=== PATIENT | female | born 1990 | race Two or more races ===

== ENCOUNTER 2020-11-04 17:30 | Inpatient (IN) | payer MEDICARE, MEDICAID ==
[~2020-11-04] VITALS: Ht 152.4 cm; Wt 91.0 kg
[2020-11-04] MEDS ORDERED: SODIUM CHLORIDE 0.9% 250 ML IV ONE (18:15)
[2020-11-04 19:47] LABS: Basophils # (auto) 0.1 10 ^3/uL (0-0.2); Eosinophils # (auto) 0.1 10 ^3/uL (0-0.8); Lymphocytes # (auto) 0.5 10 ^3/uL (0.4-5.4); Red Blood Cells 2.07 10^6/uL (4.0-5.20)
[2020-11-04 19:50] LABS: Basophils % (auto) 1.2 % (0.0-2.0); Eosinophils % (auto) 1.2 % (0.0-7.0); Hematocrit 18.4 % (36.0-46.0); Lymphocytes % (auto) 8.7 % (10.0-50.0); Mean Corpuscular Hemoglobin 29.5 pg (28.0-32.0); Mean Corpuscular Hgb Conc. 33.1 g/dL (32.0-36.0); Monocytes # (auto) 0.4 10 ^3/uL (0-1.3); Monocytes % (auto) 7.1 % (0.0-12.0); Neutrophils % (auto) 81.8 % (37.0-80.0); Nucleated Red Blood Cells % 0.1 %; Platelet Count (auto) 229 10^3/uL (140-450); White Blood Cell 6.1 10^3/uL (4.4-10.8)
[2020-11-04 19:58] LABS: Albumin 2.3 g/dL (3.4-5.0); Calcium 7.6 mg/dL (8.5-10.1); Magnesium 2.3 mg/dL (1.6-2.6); Potassium 4.5 mmol/L (3.5-5.1)
[2020-11-04 20:01] LABS: BUN/Creatinine Ratio 7.8
[2020-11-04 20:03] LABS: Hemoglobin 6.1 g/dL (12.2-16.2)
[2020-11-04 20:05] LABS: Bilirubin, Total 0.6 mg/dL (0.2-1.0); Total Protein 7.5 g/dL (6.4-8.2)
[2020-11-04] MEDS ORDERED: LABETALOL HCL 5 MG/ML 4ML SYRINGE IV ONE (20:15)
[2020-11-04] MEDS ORDERED: DEXTROSE (50%) 50ML SYRG IV PRN (21:30)
[2020-11-04] MEDS ORDERED: ONDANSETRON HCL 4 MG/2 ML VIAL IV PRN (21:30)
[2020-11-04] MEDS ORDERED: ACETAMINOPHEN 325 MG TAB PO PRN (21:30)
[2020-11-04] MEDS ORDERED: LORazepam 2MG/ML-1ML VIAL IV ONE (21:30)
[2020-11-04] MEDS ORDERED: TEMAZEPAM 15 MG CAP PO PRN (21:30)
[2020-11-04] MEDS ORDERED: NITROGLYCERIN 0.4 MG SL TAB SL PRN (23:00)
[2020-11-04] MEDS: ATORVASTATIN 20 MG TAB PO SCH (23:20)
[2020-11-04] MEDS: GABAPENTIN 100 MG CAP PO SCH (23:20)
[2020-11-04 23:56] VITALS: BP 104/55
[2020-11-05] VITALS (94 sets, daily range): BP systolic 54–200; BP diastolic 35–117
[2020-11-05] MEDS ORDERED: SODIUM CHLORIDE 0.9% 500 ML IV ONE (00:15)
[2020-11-05] MEDS ORDERED: ETOMIDATE (2MG/ML) 20ML VIAL IV ONE ×2 (00:36→05:15)
[2020-11-05] MEDS ORDERED: ROCURONIUM 10MG/ML 10ML VIAL IV ONE ×3 (00:40→00:41)
[2020-11-05] MEDS ORDERED: SUCCINYLCHOLINE CHLORIDE 20 MG/ML 10ML VIAL IV ONE (00:42)
[2020-11-05] MEDS ORDERED: PROPOFOL 100 ML IV ONE (00:46)
[2020-11-05] MEDS: PROPOFOL 100 ML IV SCH (00:46)
[2020-11-05] MEDS ORDERED: MIDAZOLAM DRIP 50 mg/50mL 50 ML IV ONE (01:52)
[2020-11-05] MEDS ORDERED: fentaNYL Drip 2500mCg/250mlNS 250 ML IV ONE (01:53)
[2020-11-05] MEDS: MIDAZOLAM DRIP 50 mg/50mL 50 ML IV SCH ×4 (01:56→21:38)
[2020-11-05] MEDS: fentaNYL Drip 2500mCg/250mlNS 250 ML IV SCH ×2 (02:00→13:51)
[2020-11-05] MEDS ORDERED: NOREPINEPHRINE 8 MG/250ML KIT 250 ML IV ONE (02:00)
[2020-11-05] MEDS: NOREPINEPHRINE 8 MG/250ML KIT 250 ML IV SCH (02:14)
[2020-11-05] MEDS ORDERED: dilTIAZem 25 MG/5 ML VIAL IV ONE ×2 (02:22)
[2020-11-05] MEDS: InsuLIN REG 1unit/0.01ml Soln (100units/ml) SC SCH ×4 (03:00→18:00)
[2020-11-05] MEDS: ACCU-CHEK COMFORT CURVE STRIP VI SCH ×4 (03:00→17:34)
[2020-11-05] MEDS ORDERED: methylPREDNISolone SOD SUCC 125 MG/2 ML VL IV ONE (03:15)
[2020-11-05] MEDS ORDERED: FAMOTIDINE (10MG/ML) 2ML VL IV ONE (03:15)
[2020-11-05] MEDS ORDERED: ACETAMINOPHEN 325 MG TAB PO ONE (03:15)
[2020-11-05] MEDS ORDERED: AMLO-489 PO (04:48)
[2020-11-05] MEDS ORDERED: ZOLP5TAB5 PO (04:49)
[2020-11-05] MEDS ORDERED: GABA300C10 PO (04:49)
[2020-11-05] MEDS ORDERED: ATOR40TA52 PO (04:49)
[2020-11-05] MEDS ORDERED: CARV3.1240 PO (04:49)
[2020-11-05] MEDS ORDERED: HYDR-4798 PO (04:51)
[2020-11-05] MEDS ORDERED: SUCR5CHW PO (04:51)
[2020-11-05] MEDS: CLINDAMYCIN 600MG IV 50 ML IV SCH ×3 (05:24→21:30)
[2020-11-05] MEDS ORDERED: DIGOXIN (250MCG/ML) 2 ML AMPULE IV ONE (05:30)
[2020-11-05] MEDS ORDERED: AMIODARONE HCL 150 MG in D5W 5% 100 ML IV ONE (06:45)
[2020-11-05] MEDS ORDERED: AMIODARONE 450mg/250ml AE 250 ML IV SCH (07:00)
[2020-11-05] MEDS ORDERED: ENOXAPARIN SOD 100 MG/1 ML SYRINGE SC ONE (07:45)
[2020-11-05 09:10] LABS: Basophils # (auto) 0 10 ^3/uL (0-0.2); Eosinophils # (auto) 0 10 ^3/uL (0-0.8); Lymphocytes # (auto) 0.3 10 ^3/uL (0.4-5.4); Neutrophils # (auto) 6.1 10 ^3/uL (1.6-8.6)
[2020-11-05 09:12] LABS: Basophils % (auto) 0.7 % (0.0-2.0); Lymphocytes % (auto) 4.8 % (10.0-50.0); Mean Corpuscular Hemoglobin 30.4 pg (28.0-32.0); Mean Corpuscular Hgb Conc. 33.3 g/dL (32.0-36.0); Mean Corpuscular Volume 91.4 fL (80.0-100.0); Monocytes # (auto) 0.2 10 ^3/uL (0-1.3); Monocytes % (auto) 2.5 % (0.0-12.0); Nucleated Red Blood Cells % 0.2 %; Platelet Count (auto) 275 10^3/uL (140-450); Red Blood Cells 1.86 10^6/uL (4.0-5.20); Red Cell Distribution Width 18.4 % (11.8-14.3); White Blood Cell 6.7 10^3/uL (4.4-10.8)
[2020-11-05 09:29] LABS: Calcium 7.8 mg/dL (8.5-10.1)
[2020-11-05 09:33] LABS: BUN/Creatinine Ratio 7.9
[2020-11-05 09:34] LABS: INR 1.36 (0.9-1.15); Partial Thromboplastin Time 46.7 sec (23.0-31.2)
[2020-11-05 09:35] LABS: Potassium 6.2 mmol/L (3.5-5.1)
[2020-11-05 09:49] LABS: Hemoglobin 5.7 g/dL (12.2-16.2)
[2020-11-05] MEDS ORDERED: SODIUM ZIRCONIUM CYCL 10 GM PAK PO ONE (10:00)
[2020-11-05] MEDS ORDERED: amLODIPine BESYLATE 5 MG TAB PO SCH (10:00)
[2020-11-05] MEDS ORDERED: ASPirin 81 mg TAB PO SCH (10:00)
[2020-11-05] MEDS ORDERED: ALBUTEROL SULF 2.5 MG/0.5ML(0.5%) NEB SOLN NEB ONE (10:00)
[2020-11-05] MEDS ORDERED: LOSARTAN POTASSIUM 50 MG TAB PO SCH (10:00)
[2020-11-05] MEDS ORDERED: InsuLIN REG 1unit/0.01ml Soln (100units/ml) IV ONE (10:00)
[2020-11-05] MEDS ORDERED: SERTRALINE HCL 50 MG TAB PO SCH (10:00)
[2020-11-05] MEDS ORDERED: PANTOPRAZOLE 40 MG TAB PO SCH (10:00)
[2020-11-05] MEDS ORDERED: DEXTROSE (50%) 50ML SYRG IV ONE (10:00)
[2020-11-05] MEDS ORDERED: SODIUM BICARBONATE 8.4% INJ 50ML SYRINGE IV ONE ×2 (10:00→18:55)
[2020-11-05] MEDS ORDERED: ALBUTEROL SULF 2.5 MG/0.5ML(0.5%) NEB SOLN ONE (10:07)
[2020-11-05] MEDS: CALCIUM ACETATE 667 MG CAP PO SCH ×3 (10:20→18:39)
[2020-11-05] MEDS: GABAPENTIN 100 MG CAP PO SCH (10:20)
[2020-11-05] MEDS: PANTOPRAZOLE 40 MG/10 ML VIAL INJ IV SCH (10:20)
[2020-11-05] MEDS ORDERED: cefTRIAXone 1GM/50ML D5W 50 ML IV ONE (13:45)
[2020-11-05] MEDS ORDERED: AZITHROMYCIN 500MG/ 250ML 250 ML IV ONE (13:45)
[2020-11-05 14:00] LABS: % Iron Saturation 24.2 % (15-50)
[2020-11-05] MEDS: AMIODARONE 450mg/250ml AE 250 ML IV SCH (14:30)
[2020-11-05] MEDS ORDERED: SODIUM CHL 0.9% 1000 ML BAG XX ONE (16:15)
[2020-11-05 18:29] LABS: Hematocrit 27.1 % (36.0-46.0)
[2020-11-05] MEDS: SODIUM ZIRCONIUM CYCL 10 GM PAK PO SCH ×2 (18:39→22:11)
[2020-11-05] MEDS ORDERED: AMIODARONE HCL (50 MG/ ML) 3 ML VIAL IV ONE (18:55)
[2020-11-05] MEDS ORDERED: EPINEPHrine HCL 1 MG/10 ML SYRG IV ONE (18:55)
[2020-11-05] MEDS ORDERED: EPOETIN ALFA-EPBX 10,000 UNIT/1ML VIAL SC ONE (21:00)
[2020-11-05] MEDS: ATORVASTATIN 20 MG TAB PO SCH (22:10)
[2020-11-06] VITALS (101 sets, daily range): BP systolic 90–197; BP diastolic 37–89
[2020-11-06] MEDS: InsuLIN REG 1unit/0.01ml Soln (100units/ml) SC SCH ×4 (00:11→18:30)
[2020-11-06] MEDS: fentaNYL Drip 2500mCg/250mlNS 250 ML IV SCH (00:12)
[2020-11-06] MEDS: ACCU-CHEK COMFORT CURVE STRIP VI SCH ×4 (00:12→18:00)
[2020-11-06] MEDS: PROPOFOL 100 ML IV SCH (00:35)
[2020-11-06] MEDS: NOREPINEPHRINE 8 MG/250ML KIT 250 ML IV SCH (02:15)
[2020-11-06] MEDS: AMIODARONE 450mg/250ml AE 250 ML IV SCH (04:35)
[2020-11-06 04:38] LABS: Basophils # (auto) 0 10 ^3/uL (0-0.2); Eosinophils # (auto) 0 10 ^3/uL (0-0.8); Lymphocytes # (auto) 0.5 10 ^3/uL (0.4-5.4); Monocytes # (auto) 0.4 10 ^3/uL (0-1.3); Monocytes % (auto) 7.6 % (0.0-12.0)
[2020-11-06 04:41] LABS: Basophils % (auto) 0.2 % (0.0-2.0); Hematocrit 20.7 % (36.0-46.0); Lymphocytes % (auto) 9.6 % (10.0-50.0); Mean Corpuscular Hemoglobin 29.8 pg (28.0-32.0); Mean Corpuscular Hgb Conc. 33.7 g/dL (32.0-36.0); Mean Corpuscular Volume 88.4 fL (80.0-100.0); Neutrophils # (auto) 4.7 10 ^3/uL (1.6-8.6); Neutrophils % (auto) 82.6 % (37.0-80.0); Nucleated Red Blood Cells % 1.1 %; Platelet Count (auto) 218 10^3/uL (140-450); Red Blood Cells 2.34 10^6/uL (4.0-5.20); Red Cell Distribution Width 18.1 % (11.8-14.3); White Blood Cell 5.7 10^3/uL (4.4-10.8)
[2020-11-06 04:57] LABS: Potassium 4.5 mmol/L (3.5-5.1)
[2020-11-06 05:03] LABS: Albumin 2.3 g/dL (3.4-5.0); BUN/Creatinine Ratio 8.3; Bilirubin, Total 0.9 mg/dL (0.2-1.0); Calcium 8.2 mg/dL (8.5-10.1); Magnesium 2.5 mg/dL (1.6-2.6); Total Protein 7.1 g/dL (6.4-8.2)
[2020-11-06] MEDS: SODIUM ZIRCONIUM CYCL 10 GM PAK PO SCH ×2 (05:46→14:00)
[2020-11-06] MEDS: CLINDAMYCIN 600MG IV 50 ML IV SCH ×3 (05:47→21:06)
[2020-11-06] MEDS: AZITHROMYCIN 500MG/ 250ML 250 ML IV SCH (09:20)
[2020-11-06] MEDS: PANTOPRAZOLE 40 MG/10 ML VIAL INJ IV SCH (09:20)
[2020-11-06] MEDS: cefTRIAXone 1GM/50ML D5W 50 ML IV SCH (09:20)
[2020-11-06] MEDS: CALCIUM ACETATE 667 MG CAP PO SCH ×3 (09:20→18:00)
[2020-11-06] MEDS: AMIODARONE HCL 200 MG TAB PO SCH ×2 (09:21→21:06)
[2020-11-06 09:56] LABS: Hematocrit 20.2 % (36.0-46.0)
[2020-11-06] MEDS ORDERED: ASPirin 81 mg TAB PO SCH (10:00)
[2020-11-06 10:19] LABS: Hemoglobin 6.8 g/dL (12.2-16.2)
[2020-11-06] MEDS ORDERED: hydrALAZINE HCL 20 MG/ML VL ONE (12:27)
[2020-11-06] MEDS ORDERED: hydrALAZINE HCL 20 MG/ML VL IV PRN (12:30)
[2020-11-06] MEDS ORDERED: LORazepam 0.5 MG TAB PO PRN (14:45)
[2020-11-06] MEDS ORDERED: cloNIDine 0.2 mg/24hr 7DAY PATCH TD SCH (18:45)
[2020-11-06] MEDS: CARVEDILOL 3.125 MG TAB PO SCH (21:07)
[2020-11-07] VITALS (49 sets, daily range): BP systolic 118–207; BP diastolic 46–94
[2020-11-07] MEDS: ACCU-CHEK COMFORT CURVE STRIP VI SCH ×4 (00:30→18:00)
[2020-11-07] MEDS: InsuLIN REG 1unit/0.01ml Soln (100units/ml) SC SCH ×4 (00:30→18:00)
[2020-11-07 04:26] LABS: Hematocrit 26.2 % (36.0-46.0); Hemoglobin 8.8 g/dL (12.2-16.2)
[2020-11-07 04:42] LABS: Albumin 2.5 g/dL (3.4-5.0); Calcium 8.2 mg/dL (8.5-10.1); Potassium 4.2 mmol/L (3.5-5.1)
[2020-11-07 04:45] LABS: BUN/Creatinine Ratio 9.4; Bilirubin, Total 0.6 mg/dL (0.2-1.0); Total Protein 6.7 g/dL (6.4-8.2)
[2020-11-07 04:46] LABS: INR 1.32 (0.9-1.15)
[2020-11-07] MEDS: CLINDAMYCIN 600MG IV 50 ML IV SCH (06:16)
[2020-11-07] MEDS ORDERED: SODIUM CHL 0.9% 1000 ML BAG XX ONE (07:00)
[2020-11-07] MEDS: CALCIUM ACETATE 667 MG CAP PO SCH ×3 (08:00→18:00)
[2020-11-07] MEDS: cefTRIAXone 1GM/50ML D5W 50 ML IV SCH (09:00)
[2020-11-07 09:25] LABS: Hepatitis B Surface Antibody Positive
[2020-11-07 09:52] LABS: Hepatitis A Total Antibody Positive
[2020-11-07] MEDS: PANTOPRAZOLE 40 MG/10 ML VIAL INJ IV SCH (10:00)
[2020-11-07] MEDS: CARVEDILOL 3.125 MG TAB PO SCH ×2 (10:00→21:32)
[2020-11-07] MEDS: AZITHROMYCIN 500MG/ 250ML 250 ML IV SCH (10:00)
[2020-11-07] MEDS: amLODIPine BESYLATE 5 MG TAB PO SCH (10:00)
[2020-11-07] MEDS: AMIODARONE HCL 200 MG TAB PO SCH ×2 (10:00→21:32)
[2020-11-07] MEDS ORDERED: HYDROmorphone HCL 2 MG/ML VL ONE (10:30)
[2020-11-07] MEDS: HYDROmorphone HCL 2 MG/ML VL IV PRN ×3 (10:39→21:32)
[2020-11-07 11:00] LABS: Hepatitis B Core Total AB Negative; Hepatitis B Surface Antigen Negative (Negative); Hepatitis C Antibody Negative (Negative)
[2020-11-07] MEDS ORDERED: EPOETIN ALFA-EPBX 10,000 UNIT/1ML VIAL SC ONE (21:00)
[2020-11-08] MEDS: ACCU-CHEK COMFORT CURVE STRIP VI SCH ×4 (00:18→17:35)
[2020-11-08] MEDS: InsuLIN REG 1unit/0.01ml Soln (100units/ml) SC SCH ×4 (00:20→17:35)
[2020-11-08] MEDS: HYDROmorphone HCL 2 MG/ML VL IV PRN ×4 (04:09→23:15)
[2020-11-08 05:08] VITALS: BP 136/71
[2020-11-08] MEDS: CALCIUM ACETATE 667 MG CAP PO SCH ×3 (08:00→17:33)
[2020-11-08 09:00] VITALS: BP 116/67
[2020-11-08] MEDS ORDERED: IOHEXOL 350 MG/ML 100ML IJ ONE (09:56)
[2020-11-08] MEDS: CARVEDILOL 3.125 MG TAB PO SCH ×2 (10:50→22:07)
[2020-11-08] MEDS: amLODIPine BESYLATE 5 MG TAB PO SCH (10:51)
[2020-11-08] MEDS: AMIODARONE HCL 200 MG TAB PO SCH ×2 (10:51→22:06)
[2020-11-08] MEDS: PANTOPRAZOLE 40 MG/10 ML VIAL INJ IV SCH (10:51)
[2020-11-08] MEDS: AZITHROMYCIN 500MG/ 250ML 250 ML IV SCH (10:52)
[2020-11-08] MEDS: cefTRIAXone 1GM/50ML D5W 50 ML IV SCH (10:52)
[2020-11-08 11:08] LABS: Basophils # (auto) 0.1 10 ^3/uL (0-0.2); Eosinophils # (auto) 0.1 10 ^3/uL (0-0.8); Lymphocytes # (auto) 0.8 10 ^3/uL (0.4-5.4); Nucleated Red Blood Cells % 0.2 %; White Blood Cell 5.5 10^3/uL (4.4-10.8)
[2020-11-08 11:11] LABS: Basophils % (auto) 1.1 % (0.0-2.0); Eosinophils % (auto) 2.2 % (0.0-7.0); Hematocrit 24.3 % (36.0-46.0); Hemoglobin 8.1 g/dL (12.2-16.2); Lymphocytes % (auto) 14.2 % (10.0-50.0); Mean Corpuscular Hemoglobin 30.3 pg (28.0-32.0); Mean Corpuscular Hgb Conc. 33.5 g/dL (32.0-36.0); Mean Corpuscular Volume 90.6 fL (80.0-100.0); Monocytes # (auto) 0.6 10 ^3/uL (0-1.3); Monocytes % (auto) 10.1 % (0.0-12.0); Neutrophils % (auto) 72.4 % (37.0-80.0); Platelet Count (auto) 185 10^3/uL (140-450); Red Blood Cells 2.69 10^6/uL (4.0-5.20); Red Cell Distribution Width 17.7 % (11.8-14.3)
[2020-11-08] MEDS: diphenhdrAMINE HCL 50 MG/1 ML VL IV PRN (12:56)
[2020-11-08 13:00] VITALS: BP 132/70
[2020-11-08 13:31] LABS: Albumin 2.3 g/dL (3.4-5.0); Calcium 8.2 mg/dL (8.5-10.1); Magnesium 2.7 mg/dL (1.6-2.6); Potassium 3.3 mmol/L (3.5-5.1)
[2020-11-08 13:34] LABS: BUN/Creatinine Ratio 7.7; Bilirubin, Total 0.5 mg/dL (0.2-1.0); Total Protein 6.2 g/dL (6.4-8.2)
[2020-11-08 16:57] VITALS: BP 119/75
[2020-11-08] MEDS ORDERED: POLYETHYLENE GLYCOL 17 GM PWDR PO ONE (17:45)
[2020-11-08] MEDS ORDERED: POTASSIUM CHL 20 Meq TABLET PO ONE (17:45)
[2020-11-08] MEDS ORDERED: REMDESIVIR PER PHARMACY 0 ML IV SCH (17:45)
[2020-11-08 22:00] VITALS: BP 119/65
[2020-11-09] MEDS: InsuLIN REG 1unit/0.01ml Soln (100units/ml) SC SCH ×4 (00:36→17:37)
[2020-11-09] MEDS: diphenhdrAMINE HCL 50 MG/1 ML VL IV PRN (00:37)
[2020-11-09 05:24] VITALS: BP 95/53
[2020-11-09] MEDS: HYDROmorphone HCL 2 MG/ML VL IV PRN ×4 (05:40→21:41)
[2020-11-09] MEDS: ACCU-CHEK COMFORT CURVE STRIP VI SCH ×4 (05:40→17:25)
[2020-11-09] MEDS ORDERED: SODIUM CHL 0.9% 1000 ML BAG XX ONE (07:00)
[2020-11-09 07:22] LABS: Basophils # (auto) 0 10 ^3/uL (0-0.2); Basophils % (auto) 0.4 % (0.0-2.0); Eosinophils # (auto) 0.2 10 ^3/uL (0-0.8); Eosinophils % (auto) 3.8 % (0.0-7.0); Lymphocytes # (auto) 0.8 10 ^3/uL (0.4-5.4); Lymphocytes % (auto) 12.4 % (10.0-50.0); Mean Corpuscular Hemoglobin 30.5 pg (28.0-32.0); Mean Corpuscular Hgb Conc. 33.4 g/dL (32.0-36.0); Mean Corpuscular Volume 91.3 fL (80.0-100.0); Monocytes # (auto) 0.6 10 ^3/uL (0-1.3); Monocytes % (auto) 9.8 % (0.0-12.0); Neutrophils # (auto) 4.6 10 ^3/uL (1.6-8.6); Neutrophils % (auto) 73.6 % (37.0-80.0); Nucleated Red Blood Cells % 0.4 %; Platelet Count (auto) 178 10^3/uL (140-450); Red Blood Cells 2.63 10^6/uL (4.0-5.20); Red Cell Distribution Width 17.4 % (11.8-14.3); White Blood Cell 6.3 10^3/uL (4.4-10.8)
[2020-11-09 07:32] LABS: Albumin 2.4 g/dL (3.4-5.0); Calcium 7.5 mg/dL (8.5-10.1); Potassium 3.6 mmol/L (3.5-5.1)
[2020-11-09 07:41] LABS: BUN/Creatinine Ratio 7.2; Bilirubin, Total 0.4 mg/dL (0.2-1.0); Total Protein 6.5 g/dL (6.4-8.2)
[2020-11-09] MEDS: CALCIUM ACETATE 667 MG CAP PO SCH ×3 (08:22→17:26)
[2020-11-09] MEDS: cefTRIAXone 1GM/50ML D5W 50 ML IV SCH (08:23)
[2020-11-09 08:48] VITALS: BP 116/58
[2020-11-09] MEDS: amLODIPine BESYLATE 5 MG TAB PO SCH (10:00)
[2020-11-09] MEDS: CARVEDILOL 3.125 MG TAB PO SCH ×2 (10:00→21:41)
[2020-11-09] MEDS: PANTOPRAZOLE 40 MG/10 ML VIAL INJ IV SCH (10:20)
[2020-11-09] MEDS: AMIODARONE HCL 200 MG TAB PO SCH ×2 (10:20→21:40)
[2020-11-09] MEDS: AZITHROMYCIN 500MG/ 250ML 250 ML IV SCH (10:21)
[2020-11-09 13:00] VITALS: BP 113/75
[2020-11-09] MEDS ORDERED: TEMAZEPAM 15 MG CAP PO PRN (13:15)
[2020-11-09 17:00] VITALS: BP 111/68
[2020-11-09] MEDS ORDERED: ERGOCALCIFEROL 50,000 UNIT(1.25MG) CAP PO SCH (18:30)
[2020-11-09] MEDS ORDERED: EPOETIN ALFA-EPBX 10,000 UNIT/1ML VIAL SC ONE (21:00)
[2020-11-09 22:12] VITALS: BP 135/53
[2020-11-10] MEDS: diphenhdrAMINE HCL 50 MG/1 ML VL IV PRN (00:48)
[2020-11-10] MEDS: HYDROmorphone HCL 2 MG/ML VL IV PRN ×2 (04:23→11:21)
[2020-11-10 05:05] VITALS: BP 114/55
[2020-11-10] MEDS: InsuLIN REG 1unit/0.01ml Soln (100units/ml) SC SCH ×3 (06:00→12:00)
[2020-11-10] MEDS: ACCU-CHEK COMFORT CURVE STRIP VI SCH ×3 (06:00→12:00)
[2020-11-10 08:25] LABS: Calcium 7.9 mg/dL (8.5-10.1)
[2020-11-10 08:28] LABS: Albumin 2.4 g/dL (3.4-5.0); BUN/Creatinine Ratio 7.3
[2020-11-10 08:31] LABS: Bilirubin, Total 0.4 mg/dL (0.2-1.0); Total Protein 6.5 g/dL (6.4-8.2)
[2020-11-10 09:00] VITALS: BP 96/58
[2020-11-10] MEDS: AZITHROMYCIN 500MG/ 250ML 250 ML IV SCH (09:35)
[2020-11-10] MEDS: cefTRIAXone 1GM/50ML D5W 50 ML IV SCH (09:35)
[2020-11-10] MEDS: PANTOPRAZOLE 40 MG/10 ML VIAL INJ IV SCH (09:35)
[2020-11-10] MEDS: CARVEDILOL 3.125 MG TAB PO SCH (09:36)
[2020-11-10] MEDS: amLODIPine BESYLATE 5 MG TAB PO SCH (09:36)
[2020-11-10] MEDS: AMIODARONE HCL 200 MG TAB PO SCH (09:36)
[2020-11-10] MEDS: CALCIUM ACETATE 667 MG CAP PO SCH ×2 (09:36→12:00)
[2020-11-10 13:00] VITALS: BP 107/57
[2020-11-10 15:32] VITALS: BP 107/57
== END 2020-11-10 17:00 | disposition home or self-care (01) | DRG 280 ==
LOC: ER 17:30 → TELE 22:58 → ICU WEST 11-05 03:00 → TELE-EAST 11-07 20:20
PROVIDERS: ADMIT Nurse Practitioner; ATTEND Internal Medicine
PROC: 30230N1 Transfusion of Nonautologous Red Blood Cells into Peripheral Vein, Open Approach (ICD-10-PCS; 2020-11-04)
PROC: 5A1945Z Respiratory Ventilation, 24-96 Consecutive Hours (ICD-10-PCS; 2020-11-05)
PROC: 0BH17EZ Insertion of Endotracheal Airway into Trachea, Via Natural or Artificial Opening (ICD-10-PCS; 2020-11-05)
PROC: 5A12012 Performance of Cardiac Output, Single, Manual (ICD-10-PCS; 2020-11-05)
PROC: 05H933Z Insertion of Infusion Device into Right Brachial Vein, Percutaneous Approach (ICD-10-PCS; principal; 2020-11-07)
PROC: B54MZZA Ultrasonography of Right Upper Extremity Veins, Guidance (ICD-10-PCS; 2020-11-07)
PROC: 5A1D70Z Performance of Urinary Filtration, Intermittent, Less than 6 Hours Per Day (ICD-10-PCS; 2020-11-07)
DX: I13.2 Hypertensive heart and chronic kidney disease with heart failure and with stage 5 chronic kidney disease, or end stage renal disease (principal); I21.A1 Myocardial infarction type 2; I46.9 Cardiac arrest, cause unspecified; N17.1 Acute kidney failure with acute cortical necrosis; N18.6 End stage renal disease; J96.01 Acute respiratory failure with hypoxia; I50.43 Acute on chronic combined systolic (congestive) and diastolic (congestive) heart failure; U07.1 COVID-19; D62 Acute posthemorrhagic anemia; I48.92 Unspecified atrial flutter; L97.929 Non-pressure chronic ulcer of unspecified part of left lower leg with unspecified severity; L97.919 Non-pressure chronic ulcer of unspecified part of right lower leg with unspecified severity; R57.9 Shock, unspecified; I82.432 Acute embolism and thrombosis of left popliteal vein; I82.442 Acute embolism and thrombosis of left tibial vein; E66.01 Morbid (severe) obesity due to excess calories; E78.5 Hyperlipidemia, unspecified; E86.1 Hypovolemia; E87.5 Hyperkalemia; I48.91 Unspecified atrial fibrillation; I83.009 Varicose veins of unspecified lower extremity with ulcer of unspecified site; E11.22 Type 2 diabetes mellitus with diabetic chronic kidney disease; E11.51 Type 2 diabetes mellitus with diabetic peripheral angiopathy without gangrene; E11.610 Type 2 diabetes mellitus with diabetic neuropathic arthropathy; Z87.01 Personal history of pneumonia (recurrent); Z99.2 Dependence on renal dialysis
CPT/HCPCS: 36415; 36430; 36600; 71045; 71275; 73700; 76705; 80048; 80053; 80061; 82270; 82306; 82805; 82962; 83036; 83540; 83550; 83735; 83880; 84132; 84443; 84484; 84702; 85014; 85018; 85025; 85379; 85610; 85730; 86704; 86706; 86708; 86803; 86850; 86900; 86901; 86920; 87040; 87070; 87077; 87081; 87186; 87205; 87340; 87426; 90935; 92610; 93005; 93306; 93925; 93970; 94003; 96361; 96374; 96375; 97110; 99291; C9113; G0378; J0330; J0696; J1815; J2250; J2704; J3490; J7060

== ENCOUNTER 2020-11-17 21:02 | Inpatient (IN) | payer MEDICARE, MEDICAID ==
[~2020-11-17] VITALS: Ht 154.9 cm; Wt 95.3 kg
[~2020-11-17 21:02] MED LIST: AMLO-489 PO; ATOR40TA52 PO; CARV3.1240 PO; GABA300C10 PO; HYDR-4798 PO; SUCR5CHW PO; ZOLP5TAB5 PO
[2020-11-17] MEDS ORDERED: SODIUM CHLORIDE 0.9% 500 ML IV ONE (22:45)
[2020-11-18] VITALS (43 sets, daily range): BP systolic 78–143; BP diastolic 41–91
[2020-11-18] MEDS ORDERED: LIDOCAINE 1% HCL (LOCAL ANESTH.) INJ 20ML MDV ID ONE (00:15)
[2020-11-18] MEDS: NOREPINEPHRINE 8 MG/250ML KIT 250 ML IV SCH (01:10)
[2020-11-18 02:47] LABS: Basophils % (auto) 0.7 % (0.0-2.0); Lymphocytes # (auto) 0.8 10 ^3/uL (0.4-5.4)
[2020-11-18 02:49] LABS: Basophils # (auto) 0 10 ^3/uL (0-0.2); Eosinophils # (auto) 0.1 10 ^3/uL (0-0.8); Eosinophils % (auto) 0.8 % (0.0-7.0); Hematocrit 20.7 % (36.0-46.0); Lymphocytes % (auto) 11.8 % (10.0-50.0); Mean Corpuscular Hemoglobin 29.9 pg (28.0-32.0); Mean Corpuscular Hgb Conc. 32.4 g/dL (32.0-36.0); Mean Corpuscular Volume 92.2 fL (80.0-100.0); Monocytes # (auto) 0.8 10 ^3/uL (0-1.3); Monocytes % (auto) 11.5 % (0.0-12.0); Neutrophils # (auto) 5.3 10 ^3/uL (1.6-8.6); Neutrophils % (auto) 75.2 % (37.0-80.0); Nucleated Red Blood Cells % 0.2 %; Platelet Count (auto) 207 10^3/uL (140-450); Red Blood Cells 2.24 10^6/uL (4.0-5.20); Red Cell Distribution Width 17.2 % (11.8-14.3); White Blood Cell 7.1 10^3/uL (4.4-10.8)
[2020-11-18 02:52] LABS: Hemoglobin 6.7 g/dL (12.2-16.2)
[2020-11-18 02:57] LABS: Albumin 2.5 g/dL (3.4-5.0); Calcium 8.1 mg/dL (8.5-10.1); Magnesium 2.7 mg/dL (1.6-2.6)
[2020-11-18 03:00] LABS: BUN/Creatinine Ratio 8.5
[2020-11-18 03:04] LABS: INR 1.26 (0.9-1.15); Partial Thromboplastin Time 34.6 sec (23.0-31.2)
[2020-11-18 03:14] LABS: Bilirubin, Total 0.6 mg/dL (0.2-1.0); Total Protein 6.5 g/dL (6.4-8.2)
[2020-11-18] MEDS ORDERED: ALUM & MAG HYDROX-SIMETH LIQ(MAALOX) 30 ML PO ONE (03:15)
[2020-11-18] MEDS ORDERED: MORPHINE SULF INJ 2 MG/ML SYRINGE 1ML IV ONE (03:15)
[2020-11-18 03:16] LABS: Potassium 5.9 mmol/L (3.5-5.1)
[2020-11-18] MEDS ORDERED: FUROSEMIDE 20 MG/2 ML VIAL IV ONE (04:30)
[2020-11-18] MEDS ORDERED: SODIUM BICARBONATE 8.4% INJ 50ML SYRINGE IV ONE (04:30)
[2020-11-18] MEDS ORDERED: DEXTROSE (50%) 50ML SYRG IV ONE (04:30)
[2020-11-18] MEDS ORDERED: ALBUTEROL SULF 2.5 MG/0.5ML(0.5%) NEB SOLN NEB ONE (04:30)
[2020-11-18] MEDS ORDERED: InsuLIN REG 1unit/0.01ml Soln (100units/ml) IV ONE (04:30)
[2020-11-18] MEDS ORDERED: CALCIUM GLUC 1,000mg/50ml-NS 50 ML IV ONE (04:30)
[2020-11-18] MEDS ORDERED: ALBUTEROL SULF 2.5 MG/0.5ML(0.5%) NEB SOLN ONE (04:32)
[2020-11-18] MEDS ORDERED: DEXTROSE (50%) 50ML SYRG IV PRN (05:15)
[2020-11-18] MEDS ORDERED: ONDANSETRON HCL 4 MG/2 ML VIAL IV PRN (05:15)
[2020-11-18] MEDS ORDERED: NITROGLYCERIN 0.4 MG SL TAB SL PRN (05:15)
[2020-11-18] MEDS ORDERED: MORPHINE SULF INJ 2 MG/ML SYRINGE 1ML IV PRN (05:15)
[2020-11-18 06:12] LABS: Lactic Acid w/Reflex 2.6 mmol/L (0.4-2.0)
[2020-11-18] MEDS: LEVOTHYROXINE SODIUM 50 MCG TAB PO SCH (06:46)
[2020-11-18] MEDS: ACCU-CHEK COMFORT CURVE STRIP VI SCH ×4 (06:46→22:14)
[2020-11-18] MEDS: GABAPENTIN 300 MG CAP PO SCH ×3 (06:46→22:01)
[2020-11-18] MEDS: InsuLIN REG 1unit/0.01ml Soln (100units/ml) SC SCH ×4 (06:54→22:15)
[2020-11-18] MEDS: MORPHINE SULF INJ 2 MG/ML SYRINGE 1ML IV PRN ×3 (08:15→20:45)
[2020-11-18] MEDS: PANTOPRAZOLE 40 MG TAB PO SCH (10:48)
[2020-11-18 12:57] LABS: Basophils # (auto) 0 10 ^3/uL (0-0.2); Basophils % (auto) 0.6 % (0.0-2.0); Eosinophils # (auto) 0.1 10 ^3/uL (0-0.8); Eosinophils % (auto) 1.2 % (0.0-7.0); Hematocrit 28.6 % (36.0-46.0); Hemoglobin 9.3 g/dL (12.2-16.2); Lymphocytes # (auto) 1.5 10 ^3/uL (0.4-5.4); Lymphocytes % (auto) 18.1 % (10.0-50.0); Mean Corpuscular Hemoglobin 29.9 pg (28.0-32.0); Mean Corpuscular Hgb Conc. 32.5 g/dL (32.0-36.0); Mean Corpuscular Volume 92.2 fL (80.0-100.0); Monocytes # (auto) 1.2 10 ^3/uL (0-1.3); Monocytes % (auto) 14.9 % (0.0-12.0); Neutrophils # (auto) 5.2 10 ^3/uL (1.6-8.6); Neutrophils % (auto) 65.2 % (37.0-80.0); Nucleated Red Blood Cells % 0.1 %; Platelet Count (auto) 279 10^3/uL (140-450); Red Cell Distribution Width 16.4 % (11.8-14.3)
[2020-11-18 13:18] LABS: BUN/Creatinine Ratio 8.3; Calcium 8.4 mg/dL (8.5-10.1)
[2020-11-18 13:22] LABS: Potassium 6.1 mmol/L (3.5-5.1)
[2020-11-18] MEDS ORDERED: SODIUM ZIRCONIUM CYCL 10 GM PAK PO ONE (15:12)
[2020-11-18] MEDS ORDERED: ALBUMIN 25% 100 ML IV ONE (15:30)
[2020-11-18] MEDS ORDERED: SODIUM CHL 0.9% 1000 ML BAG XX ONE (16:45)
[2020-11-18] MEDS: ATORVASTATIN 20 MG TAB PO SCH (18:20)
[2020-11-18] MEDS ORDERED: EPOETIN ALFA-EPBX 4,000 UNIT/ML VIAL SC ONE (21:00)
[2020-11-18] MEDS: SODIUM ZIRCONIUM CYCL 10 GM PAK PO SCH (22:01)
[2020-11-19] VITALS (11 sets, daily range): BP systolic 82–115; BP diastolic 48–69
[2020-11-19] MEDS: NOREPINEPHRINE 8 MG/250ML KIT 250 ML IV SCH (01:00)
[2020-11-19] MEDS: MORPHINE SULF INJ 2 MG/ML SYRINGE 1ML IV PRN ×5 (02:55→22:49)
[2020-11-19] MEDS: GABAPENTIN 300 MG CAP PO SCH ×3 (05:54→21:46)
[2020-11-19] MEDS: LEVOTHYROXINE SODIUM 50 MCG TAB PO SCH (05:55)
[2020-11-19] MEDS: ACCU-CHEK COMFORT CURVE STRIP VI SCH ×4 (06:23→21:46)
[2020-11-19] MEDS: InsuLIN REG 1unit/0.01ml Soln (100units/ml) SC SCH ×4 (06:23→21:53)
[2020-11-19 08:53] LABS: Hematocrit 27.6 % (36.0-46.0)
[2020-11-19] MEDS: PANTOPRAZOLE 40 MG TAB PO SCH (09:13)
[2020-11-19] MEDS: SODIUM ZIRCONIUM CYCL 10 GM PAK PO SCH ×2 (09:13→13:14)
[2020-11-19 09:30] LABS: Calcium 8.7 mg/dL (8.5-10.1); Magnesium 2.9 mg/dL (1.6-2.6); Potassium 4.1 mmol/L (3.5-5.1)
[2020-11-19 09:35] LABS: BUN/Creatinine Ratio 7.2
[2020-11-19] MEDS: ATORVASTATIN 20 MG TAB PO SCH (18:28)
[2020-11-19] MEDS: TEMAZEPAM 15 MG CAP PO PRN (21:46)
[2020-11-20] MEDS: MORPHINE SULF INJ 2 MG/ML SYRINGE 1ML IV PRN ×4 (03:49→20:04)
[2020-11-20 04:44] VITALS: BP 100/60
[2020-11-20 05:56] LABS: Hematocrit 25.3 % (36.0-46.0); Hemoglobin 8.4 g/dL (12.2-16.2)
[2020-11-20] MEDS: GABAPENTIN 300 MG CAP PO SCH ×3 (06:01→22:04)
[2020-11-20 06:16] LABS: Magnesium 2.6 mg/dL (1.6-2.6); Potassium 4.3 mmol/L (3.5-5.1)
[2020-11-20] MEDS: LEVOTHYROXINE SODIUM 50 MCG TAB PO SCH (06:41)
[2020-11-20] MEDS: ACCU-CHEK COMFORT CURVE STRIP VI SCH ×4 (06:41→22:04)
[2020-11-20] MEDS: InsuLIN REG 1unit/0.01ml Soln (100units/ml) SC SCH ×4 (06:42→22:00)
[2020-11-20] MEDS ORDERED: SODIUM CHL 0.9% 1000 ML BAG XX ONE (07:30)
[2020-11-20] MEDS: PANTOPRAZOLE 40 MG TAB PO SCH (08:34)
[2020-11-20 09:00] VITALS: BP 122/82
[2020-11-20] MEDS ORDERED: diphenhdrAMINE HCL 50 MG/1 ML VL IV ONE (10:45)
[2020-11-20] MEDS ORDERED: CARV3.1240 PO (11:57)
[2020-11-20] MEDS ORDERED: FER325T PO (11:57)
[2020-11-20 13:00] VITALS: BP 140/85
[2020-11-20] MEDS ORDERED: ZOLP5TAB5 PO (13:05)
[2020-11-20 15:04] VITALS: BP 140/85
[2020-11-20 17:00] VITALS: BP 137/76
[2020-11-20] MEDS: ATORVASTATIN 20 MG TAB PO SCH (17:36)
[2020-11-20] MEDS ORDERED: EPOETIN ALFA-EPBX 4,000 UNIT/ML VIAL SC ONE (21:00)
[2020-11-20 21:33] VITALS: BP 158/79
[2020-11-20] MEDS: TEMAZEPAM 15 MG CAP PO PRN (22:04)
[2020-11-21 04:59] VITALS: BP 133/79
[2020-11-21] MEDS: GABAPENTIN 300 MG CAP PO SCH ×2 (05:38→14:00)
[2020-11-21] MEDS: MORPHINE SULF INJ 2 MG/ML SYRINGE 1ML IV PRN (05:39)
[2020-11-21] MEDS: InsuLIN REG 1unit/0.01ml Soln (100units/ml) SC SCH ×2 (06:48→11:30)
[2020-11-21] MEDS: ACCU-CHEK COMFORT CURVE STRIP VI SCH ×2 (06:48→11:59)
[2020-11-21] MEDS: LEVOTHYROXINE SODIUM 50 MCG TAB PO SCH (06:48)
[2020-11-21] MEDS: PANTOPRAZOLE 40 MG TAB PO SCH (09:19)
[2020-11-21 12:51] VITALS: BP 117/74
== END 2020-11-21 15:03 | disposition home or self-care (01) | DRG 915 ==
LOC: EDBD 21:02 → EDUNIT# 21:02 → ER 21:05 → OVERFLOW 11-18 05:26 → TELE-WESTW 11-18 09:35 → ICU WEST 11-18 09:36 → TELE-WESTW 11-19 01:58
PROVIDERS: ADMIT Nurse Practitioner Acute Care; ATTEND Internal Medicine
PROC: 5A1D70Z Performance of Urinary Filtration, Intermittent, Less than 6 Hours Per Day (ICD-10-PCS; 2020-11-16)
PROC: 02HV33Z Insertion of Infusion Device into Superior Vena Cava, Percutaneous Approach (ICD-10-PCS; 2020-11-17)
PROC: 30233N1 Transfusion of Nonautologous Red Blood Cells into Peripheral Vein, Percutaneous Approach (ICD-10-PCS; principal; 2020-11-18)
PROC: 5A1D70Z Performance of Urinary Filtration, Intermittent, Less than 6 Hours Per Day (ICD-10-PCS; 2020-11-20)
DX: T88.6XXA Anaphylactic reaction due to adverse effect of correct drug or medicament properly administered, initial encounter (principal); I50.43 Acute on chronic combined systolic (congestive) and diastolic (congestive) heart failure; N18.6 End stage renal disease; I13.2 Hypertensive heart and chronic kidney disease with heart failure and with stage 5 chronic kidney disease, or end stage renal disease; G89.4 Chronic pain syndrome; E87.5 Hyperkalemia; E11.22 Type 2 diabetes mellitus with diabetic chronic kidney disease; E11.42 Type 2 diabetes mellitus with diabetic polyneuropathy; L97.509 Non-pressure chronic ulcer of other part of unspecified foot with unspecified severity; I87.2 Venous insufficiency (chronic) (peripheral); E78.5 Hyperlipidemia, unspecified; T46.1X5A Adverse effect of calcium-channel blockers, initial encounter; E88.09 Other disorders of plasma-protein metabolism, not elsewhere classified; T44.7X5A Adverse effect of beta-adrenoreceptor antagonists, initial encounter; E86.1 Hypovolemia; E66.01 Morbid (severe) obesity due to excess calories; T46.5X5A Adverse effect of other antihypertensive drugs, initial encounter; D63.1 Anemia in chronic kidney disease; Z20.822 Contact with and (suspected) exposure to COVID-19; Z79.84 Long term (current) use of oral hypoglycemic drugs; Z86.16 Personal history of COVID-19; Z86.718 Personal history of other venous thrombosis and embolism; Z87.01 Personal history of pneumonia (recurrent); Z68.39 Body mass index [BMI] 39.0-39.9, adult; Z91.19 Patient's noncompliance with other medical treatment and regimen; Z99.2 Dependence on renal dialysis; Z88.1 Allergy status to other antibiotic agents; Z88.8 Allergy status to other drugs, medicaments and biological substances
CPT/HCPCS: 36415; 36556; 71045; 80048; 80053; 82728; 82962; 83605; 83735; 83880; 84100; 84132; 84443; 84484; 85014; 85018; 85025; 85379; 85610; 85730; 86141; 86850; 86900; 86901; 86920; 87040; 87081; 87340; 87426; 90935; 93005; 93970; 94640; 96361; 96374; 96375; 99291; G0378; J1815; P9047

== ENCOUNTER 2020-12-05 10:07 | Inpatient (IN) | payer MEDICARE, MEDICAID ==
[~2020-12-05] VITALS: Ht 154.9 cm; Wt 82.9 kg
[~2020-12-05 10:07] MED LIST changes: -AMLO-489 PO; +FER325T PO; -ZOLP5TAB5 PO
[2020-12-05] MEDS ORDERED: ASPirin 81 mg TAB PO ONE (10:30)
[2020-12-05 11:33] LABS: Hematocrit 27.1 % (36.0-46.0); Mean Corpuscular Hemoglobin 29.1 pg (28.0-32.0); Mean Corpuscular Hgb Conc. 33.3 g/dL (32.0-36.0); Mean Corpuscular Volume 87.4 fL (80.0-100.0); Platelet Count (auto) 257 10^3/uL (140-450); Red Cell Distribution Width 14.9 % (11.8-14.3); White Blood Cell 3.1 10^3/uL (4.4-10.8)
[2020-12-05 11:37] LABS: Band Neutrophils % (manual) 0; Basophils % (manual) 0 (0.0-2.0); Blast Cells 0; Metamyelocytes % 0; Myelocytes % 0; Promyelocytes % 0; Reactive Lymphocytes 0
[2020-12-05 11:41] LABS: Anion Gap 7 (5-15); Blood Urea Nitrogen 19 mg/dL (7-18); Calcium 8.8 mg/dL (8.5-10.1); Carbon Dioxide 32 mmol/L (21-32); Chloride 90 mmol/L (98-107); Glucose 97 mg/dL (74-106); INR 1.09 (0.9-1.15); Partial Thromboplastin Time 40.1 sec (23.0-31.2); Potassium 3.8 mmol/L (3.5-5.1); Sodium 129 mmol/L (136-145)
[2020-12-05 11:48] LABS: Alanine Aminotransferase 11 U/L (13-56); Alkaline Phosphatase 135 U/L (45-117); Aspartate Aminotransferase 10 U/L (15-37); BUN/Creatinine Ratio 3.1; GFR African American 10 mL/min; GFR Non-African American 8 mL/min; Total Protein 7.4 g/dL (6.4-8.2)
[2020-12-05 12:16] LABS: Eosinophils % (manual) 4 (0-7); Lymphocytes % (manual) 38 (10.0-50.0); Monocytes % (manual) 10 (0-12)
[2020-12-05] MEDS ORDERED: ONDANSETRON HCL 4 MG/2 ML VIAL IV ONE (13:15)
[2020-12-05] MEDS ORDERED: MORPHINE SULFATE 4 MG/ML SYR/VIAL IV ONE (13:15)
[2020-12-05] MEDS ORDERED: PIPERACILLIN-TAZOB 3.375GM 100 ML IV ONE (13:15)
[2020-12-05] MEDS ORDERED: MORPHINE SULF INJ 2 MG/ML SYRINGE 1ML IV PRN (13:30)
[2020-12-05] MEDS ORDERED: NITROGLYCERIN 0.4 MG SL TAB SL PRN (13:30)
[2020-12-05] MEDS ORDERED: PROMETHAZINE HCL 25 MG/ML 1ML IV PRN (13:45)
[2020-12-05] MEDS ORDERED: TEMAZEPAM 15 MG CAP PO PRN (13:45)
[2020-12-05] MEDS: levoFLOXacin 250MG 50 ML IV SCH (13:45)
[2020-12-05] MEDS ORDERED: DEXTROSE (50%) 50ML SYRG IV PRN (13:45)
[2020-12-05] MEDS ORDERED: LACTULOSE 20Gm/30ML SOLN PO PRN (13:45)
[2020-12-05] MEDS ORDERED: ACETAMINOPHEN 500 MG TAB PO PRN (13:45)
[2020-12-05] MEDS ORDERED: levoFLOXacin 250MG 50 ML IV ONE (13:45)
[2020-12-05] MEDS: SODIUM CHLOR 0.9% PF (SALINE LOCK) 10ML VIAL/SYR IV SCH ×2 (14:03→21:40)
[2020-12-05] MEDS: CLINDAMYCIN 600MG IV 50 ML IV SCH ×2 (14:18→21:33)
[2020-12-05] MEDS: traMADol HCL 50 MG TAB PO PRN (15:11)
[2020-12-05] MEDS ORDERED: SODIUM CHL 0.9% 1000 ML BAG XX ONE (16:15)
[2020-12-05 16:16] LABS: CRP High Sensitivity 5.64 mg/dL (< 0.3)
[2020-12-05 16:44] VITALS: BP 130/73
[2020-12-05] MEDS ORDERED: ENOXAPARIN SOD 80 MG/0.8ML SYRINGE SC ONE ×2 (16:45→22:00)
[2020-12-05] MEDS: InsuLIN REG 1unit/0.01ml Soln (100units/ml) SC SCH ×2 (17:00→21:51)
[2020-12-05] MEDS: ACCU-CHEK COMFORT CURVE STRIP VI SCH ×2 (17:00→21:48)
[2020-12-05] MEDS ORDERED: diphenhdrAMINE HCL 50 MG/1 ML VL IV ONE (17:30)
[2020-12-05] MEDS ORDERED: EPOETIN ALFA-EPBX 10,000 UNIT/1ML VIAL SC ONE (21:00)
[2020-12-05] MEDS: MORPHINE SULF INJ 2 MG/ML SYRINGE 1ML IV PRN (21:37)
[2020-12-05] MEDS: ATORVASTATIN 20 MG TAB PO SCH (21:39)
[2020-12-05] MEDS: FAMOTIDINE 20 MG TAB PO SCH (21:39)
[2020-12-05] MEDS: METOPROLOL TARTRATE 25 MG TAB PO SCH (21:39)
[2020-12-05 22:00] VITALS: BP 135/112
[2020-12-05] MEDS ORDERED: FAMOTIDINE 20 MG TAB PO SCH (22:00)
[2020-12-06] MEDS ORDERED: diphenhdrAMINE HCL 25 MG CAP PO PRN (02:00)
[2020-12-06] MEDS: MORPHINE SULF INJ 2 MG/ML SYRINGE 1ML IV PRN ×3 (04:20→19:46)
[2020-12-06 05:00] VITALS: BP 117/87
[2020-12-06] MEDS: CLINDAMYCIN 600MG IV 50 ML IV SCH ×3 (06:06→23:30)
[2020-12-06] MEDS: InsuLIN REG 1unit/0.01ml Soln (100units/ml) SC SCH ×4 (06:06→22:00)
[2020-12-06] MEDS: ACCU-CHEK COMFORT CURVE STRIP VI SCH ×4 (06:06→22:00)
[2020-12-06] MEDS: SODIUM CHLOR 0.9% PF (SALINE LOCK) 10ML VIAL/SYR IV SCH ×3 (06:06→23:31)
[2020-12-06] MEDS ORDERED: IOHEXOL 350 MG/ML 100ML IJ ONE (08:41)
[2020-12-06 09:00] VITALS: BP 89/51
[2020-12-06] MEDS: ENALAPRIL MALEATE 10 MG TAB PO SCH (09:00)
[2020-12-06] MEDS: ASPirin 81 mg TAB PO SCH (09:35)
[2020-12-06 09:36] VITALS: BP 107/72
[2020-12-06] MEDS: NITROGLYCERIN 0.2MG/HR TOPICAL PATCH TD SCH (10:00)
[2020-12-06] MEDS: METOPROLOL TARTRATE 25 MG TAB PO SCH ×2 (10:00→23:30)
[2020-12-06] MEDS ORDERED: ENOXAPARIN SOD 40 MG/0.4 ML SYRINGE SC SCH (10:00)
[2020-12-06] MEDS ORDERED: ENOXAPARIN SOD 80 MG/0.8ML SYRINGE SC SCH (10:00)
[2020-12-06 11:06] LABS: Hematocrit 25.2 % (36.0-46.0); Hemoglobin 8.5 g/dL (12.2-16.2); Mean Corpuscular Hemoglobin 29.7 pg (28.0-32.0); Mean Corpuscular Hgb Conc. 33.6 g/dL (32.0-36.0); Mean Corpuscular Volume 88.4 fL (80.0-100.0); Platelet Count (auto) 226 10^3/uL (140-450); Red Blood Cells 2.85 10^6/uL (4.0-5.20); White Blood Cell 2.8 10^3/uL (4.4-10.8)
[2020-12-06 11:13] LABS: Basophils % (manual) 0 (0.0-2.0); Blast Cells 0; Metamyelocytes % 0; Myelocytes % 0; Promyelocytes % 0; Reactive Lymphocytes 0
[2020-12-06 11:21] LABS: INR 1.11 (0.9-1.15); Partial Thromboplastin Time 31.3 sec (23.0-31.2)
[2020-12-06 11:22] LABS: Albumin 2.8 g/dL (3.4-5.0); Calcium 8.7 mg/dL (8.5-10.1); Potassium 3.9 mmol/L (3.5-5.1)
[2020-12-06 11:32] LABS: BUN/Creatinine Ratio 3.4; Bilirubin, Total 0.6 mg/dL (0.2-1.0)
[2020-12-06 11:37] LABS: Band Neutrophils % (manual) 1; Eosinophils % (manual) 4 (0-7); Lymphocytes % (manual) 43 (10.0-50.0); Monocytes % (manual) 15 (0-12)
[2020-12-06 13:00] VITALS: BP 117/47
[2020-12-06] MEDS: diphenhdrAMINE HCL 50 MG/1 ML VL IV PRN ×2 (13:22→23:29)
[2020-12-06 16:38] VITALS: BP 95/47
[2020-12-06] MEDS ORDERED: LIDOCAINE 2%HCL (LOCAL ANESTH.) INJ 20ML MDV ONE (19:36)
[2020-12-06] MEDS ORDERED: fentaNYL CITRATE 100 MCG/2 ML VL ONE (19:38)
[2020-12-06] MEDS ORDERED: MIDAZOLAM HCL 1MG/1ML-2 ML VIAL ONE (19:39)
[2020-12-06] MEDS ORDERED: CLOPIDOGREL 300 MG TAB ONE (20:57)
[2020-12-06 22:37] VITALS: BP 114/71
[2020-12-06] MEDS: ATORVASTATIN 20 MG TAB PO SCH (23:30)
[2020-12-06] MEDS: FAMOTIDINE 20 MG TAB PO SCH (23:31)
[2020-12-07] MEDS: traMADol HCL 50 MG TAB PO PRN ×3 (03:34→19:35)
[2020-12-07 05:10] VITALS: BP 114/51
[2020-12-07] MEDS: diphenhdrAMINE HCL 50 MG/1 ML VL IV PRN ×3 (05:11→18:07)
[2020-12-07] MEDS: CLINDAMYCIN 600MG IV 50 ML IV SCH ×3 (05:13→21:30)
[2020-12-07] MEDS: SODIUM CHLOR 0.9% PF (SALINE LOCK) 10ML VIAL/SYR IV SCH ×3 (06:00→21:21)
[2020-12-07] MEDS ORDERED: SODIUM CHL 0.9% 1000 ML BAG XX ONE (07:00)
[2020-12-07] MEDS: InsuLIN REG 1unit/0.01ml Soln (100units/ml) SC SCH ×4 (07:00→22:03)
[2020-12-07] MEDS: ACCU-CHEK COMFORT CURVE STRIP VI SCH ×4 (07:00→21:31)
[2020-12-07 08:00] VITALS: BP 105/53
[2020-12-07 08:59] LABS: Hematocrit 24.8 % (36.0-46.0); Hemoglobin 8.2 g/dL (12.2-16.2)
[2020-12-07 09:00] VITALS: BP 105/53
[2020-12-07] MEDS: ASPirin 81 mg TAB PO SCH (09:45)
[2020-12-07] MEDS: METOPROLOL TARTRATE 25 MG TAB PO SCH ×2 (09:45→22:00)
[2020-12-07] MEDS: ENALAPRIL MALEATE 10 MG TAB PO SCH (09:46)
[2020-12-07] MEDS: NITROGLYCERIN 0.2MG/HR TOPICAL PATCH TD SCH (09:46)
[2020-12-07] MEDS: CLOPIDOGREL BISULFATE 75 MG TAB PO SCH (09:46)
[2020-12-07 13:00] VITALS: BP 102/54
[2020-12-07] MEDS: levoFLOXacin 250MG 50 ML IV SCH (13:49)
[2020-12-07 17:00] VITALS: BP_SYST 114; BP_SYST 94; BP_DIAS 49; BP_DIAS 62
[2020-12-07] MEDS ORDERED: EPOETIN ALFA-EPBX 10,000 UNIT/1ML VIAL SC ONE (21:00)
[2020-12-07] MEDS: ATORVASTATIN 20 MG TAB PO SCH (21:31)
[2020-12-07] MEDS: FAMOTIDINE 20 MG TAB PO SCH (21:31)
[2020-12-07 22:24] VITALS: BP 108/38
[2020-12-08] MEDS: diphenhdrAMINE HCL 50 MG/1 ML VL IV PRN ×2 (00:03→10:14)
[2020-12-08 05:09] VITALS: BP 120/70
[2020-12-08] MEDS: ACCU-CHEK COMFORT CURVE STRIP VI SCH ×2 (06:08→11:44)
[2020-12-08] MEDS: SODIUM CHLOR 0.9% PF (SALINE LOCK) 10ML VIAL/SYR IV SCH ×2 (06:08→13:36)
[2020-12-08] MEDS: CLINDAMYCIN 600MG IV 50 ML IV SCH ×2 (06:09→13:36)
[2020-12-08] MEDS: InsuLIN REG 1unit/0.01ml Soln (100units/ml) SC SCH ×2 (06:18→11:30)
[2020-12-08 08:00] VITALS: BP 138/92
[2020-12-08 09:00] VITALS: BP 138/92
[2020-12-08] MEDS: NITROGLYCERIN 0.2MG/HR TOPICAL PATCH TD SCH (10:00)
[2020-12-08] MEDS: ASPirin 81 mg TAB PO SCH (10:10)
[2020-12-08] MEDS: METOPROLOL TARTRATE 25 MG TAB PO SCH (10:10)
[2020-12-08] MEDS: CLOPIDOGREL BISULFATE 75 MG TAB PO SCH (10:10)
[2020-12-08] MEDS: ENALAPRIL MALEATE 10 MG TAB PO SCH (10:11)
[2020-12-08] MEDS: traMADol HCL 50 MG TAB PO PRN (11:53)
[2020-12-08 12:51] VITALS: BP 124/59
[2020-12-08 13:00] VITALS: BP 124/59
== END 2020-12-08 16:15 | disposition home or self-care (01) | DRG 246 ==
LOC: ER 10:07 → EDBD 10:07 → TELE 13:17 → TELE-WESTW 15:00 → TELE-EAST 12-06 01:31
PROVIDERS: ADMIT Internal Medicine; ATTEND Family Medicine
PROC: 5A1D70Z Performance of Urinary Filtration, Intermittent, Less than 6 Hours Per Day (ICD-10-PCS; 2020-12-05)
PROC: 027034Z Dilation of Coronary Artery, One Artery with Drug-eluting Intraluminal Device, Percutaneous Approach (ICD-10-PCS; principal; 2020-12-06)
PROC: 4A023N8 Measurement of Cardiac Sampling and Pressure, Bilateral, Percutaneous Approach (ICD-10-PCS; 2020-12-06)
PROC: B2111ZZ Fluoroscopy of Multiple Coronary Arteries using Low Osmolar Contrast (ICD-10-PCS; 2020-12-06)
PROC: B2151ZZ Fluoroscopy of Left Heart using Low Osmolar Contrast (ICD-10-PCS; 2020-12-06)
DX: I25.10 Atherosclerotic heart disease of native coronary artery without angina pectoris (principal); N18.6 End stage renal disease; U07.1 COVID-19; I13.2 Hypertensive heart and chronic kidney disease with heart failure and with stage 5 chronic kidney disease, or end stage renal disease; L03.116 Cellulitis of left lower limb; I48.92 Unspecified atrial flutter; L03.115 Cellulitis of right lower limb; E87.1 Hypo-osmolality and hyponatremia; I31.3 Pericardial effusion (noninflammatory); E46 Unspecified protein-calorie malnutrition; M86.9 Osteomyelitis, unspecified; I50.22 Chronic systolic (congestive) heart failure; E11.621 Type 2 diabetes mellitus with foot ulcer; Z99.2 Dependence on renal dialysis; E66.9 Obesity, unspecified; I48.0 Paroxysmal atrial fibrillation; D63.8 Anemia in other chronic diseases classified elsewhere; E11.22 Type 2 diabetes mellitus with diabetic chronic kidney disease; E11.40 Type 2 diabetes mellitus with diabetic neuropathy, unspecified; E11.51 Type 2 diabetes mellitus with diabetic peripheral angiopathy without gangrene; E11.610 Type 2 diabetes mellitus with diabetic neuropathic arthropathy; E11.69 Type 2 diabetes mellitus with other specified complication; Z68.34 Body mass index [BMI] 34.0-34.9, adult; Z88.0 Allergy status to penicillin; Z88.1 Allergy status to other antibiotic agents; Z79.4 Long term (current) use of insulin; Z83.3 Family history of diabetes mellitus; Z86.16 Personal history of COVID-19; Z87.01 Personal history of pneumonia (recurrent); L97.529 Non-pressure chronic ulcer of other part of left foot with unspecified severity; L97.519 Non-pressure chronic ulcer of other part of right foot with unspecified severity; E21.3 Hyperparathyroidism, unspecified
CPT/HCPCS: 36415; 71045; 71275; 73700; 80053; 80061; 82550; 82728; 82962; 83605; 83880; 84484; 84702; 85007; 85014; 85018; 85027; 85379; 85610; 85652; 85730; 86141; 86850; 86900; 86901; 87040; 87081; 87205; 87426; 93005; 93971; 96374; 96375; 99152; 99153; 99291; C1751; C1874; C1887; G0378; J1815; J2250; J2405; J3490